=== PATIENT | female | born 1980 | race Caucasian/White ===

== ENCOUNTER 2019-05-11 09:14 | Inpatient (IN) | payer SELFPAY ==
[2019-05-11] MEDS ORDERED: Sodium Chloride 0.9% 10 ML Syringe FLUSH PRN (09:43)
[2019-05-11] MEDS ORDERED: Lactated Ringers 1,000 ML IV SCH (09:45)
[2019-05-11] MEDS ORDERED: Oxytocin/Lactated Ringers 10 UNIT/1,000 ML BAG IV SCH ×2 (09:45)
--- NOTE | 2019-05-11 12:02 | PCM.LDHP ---
L&D History of Present Illness - General Date of Service: 05/11/19 Admit Problem/Dx: Patient Status Order with Admit Dx/Problem 05/11/19 10:21 Patient Status [ADT] Routine Admission Diagnosis/Problem Admission Diagnosis/Problem 05/11/19 14:11 Wendy is a 39-year-old 5 para 4004 white female who is at 39-5/7 weeks gestational age with an RAYO of 05/13/2019 was admitted in labor with spontaneous rupture membranes and advanced cervical dilation of approximately 7 cm. Source of Information: Patient History Limitations: Reports: No Limitations - History of Present Illness Introduction:: Wendy is a 39-year-old 5 para 4004 white female who is at 39-5/7 weeks gestational age with an RAYO of 05/13/2019 was admitted in labor with spontaneous rupture membranes and advanced cervical dilation of approximately 7 cm. She reports SROM occurred at approximately 0930 hrs. on 05/11/2019. She was lynn minimally before that. She is had intensification of contractions since that time. Heart tones are reassuring. Patient requests to do labor is not she is possible. She refuses an IV, is willing to undergo heart tone evaluation. She declines pain control intervention. 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 RAYO 05/13/2019 as is based upon a certain lastduring 08/06/2018 and supported by 2 ultrasounds done during the course of . Patient's obstetric history: Patient had menarche at age 16. Cycles every 28 days. No control times conception. Certain last menstrual period started 08/06/2018. Includes 4 vaginal deliveries in the 6 lbs. 12 oz.-8 lbs. 2 oz. range. Due to these were home deliveries and 3 of those were in the hospital. To have natural course is natural labors. She is considering taking the placenta home to have an encapsulated. This is discussed in detail with patient including the risks, long-term implications that are potentially present and process for doing this. She appears to understand and will sign a release of her spine stability as is protocol of the hospital. course. Patient was seen on a relatively infrequent basis of first visit at 18-5/7 weeks gestational age. She had a total of 5 visits during the course of . Her pregravid weight was 139 and final weight was 159.8 for a 20 pound weight gain. Fundal height growth was appropriate during the course of and her vital signs remained stable. Laboratory testing shows blood to be O+ with a negative MRI screening. Her first hemoglobin is 12.7 g/dL. Platelets are 194,000. She is rubella immune. Patient declined STI testing. Second trimester labs showed hemoglobin of 12.6 g/dL. Her platelets are 165,000. Group B strep screen was negative. Hemoglobin A1c was normal at 5.10 as done on 02/10/2019 as patient declined the 1 hour GTT. Allergies: None Medications: 1. vitamins 2. Ferrous sulfate 325 mg by mouth daily Past medical history: 1. 4. 2. History abnormal Pap smear but normal on recheck Past surgical history: Unremarkable Family history: Mother and father are alive and well. Patient has 6 brothers and 6 sisters. Maternal grandmother is alive and well. Maternal grandfather is secondary to old age. Paternal grandmother is at from unknown cause. Paternal grandfather unknown cause. No clotting, bleeding, congenital defects, or anesthesia problems noted in the family. Social history: Patient is . is Vlad Llamas. She lives in [place], [place]. She is a homemaker. She does not use any significant most alcohol, drugs or tobacco. Review of systems: In general patient has no complaints. Patient reports spontaneous rupture membranes and contractions. Skin: Negative Lungs: No infectious symptoms or shortness of breath Cardiovascular: No chest pain or exercise intolerance Breasts: No lumps, changes in size, pain, dimpling, discharge or axillary or supraclavicular concerns. Changes associated are noted GI: Negative : Changes associated . Musculoskeletal: Negative Neurological: Negative In general the patient is well-developed, well-nourished, pleasant female of stated age in no acute distress. On last evaluation in clinic on 05/03/2019 patient had a blood pressure 114/80 her weight was 159.8 with pregravid weight 139.2. Fundal height was normal at 38 cm. heart rate is 147. Her height is 5 feet 10 inches. Her prepregnancy body mass index is 17.9. Skin is warm dry without lesions. HEENT, neck and back within normal limits. Lungs are clear with good breath sounds in all lung lambert. Cardiovascular exam shows regular and rhythm without murmurs. Breast exam is not done at this time having been done the first visit and found to be normal. Abdomen is gravid. Fundal height is 38 cm baby in vertex presentation.. Genital exam on last evaluation clinic was declined. Upon admission into labor and delivery her cervix was 7 cm dilated. Extremities and neurological exam are grossly within normal limits. 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: - Infectious Disease History Infectious Disease History: Reports: Chicken Pox, Measles, Mumps, Rubella Social & Family History - Family History Family Medical History: Noncontributory - Tobacco Use Smoking Status *Q: Never Smoker Second Hand Smoke Exposure: No - Caffeine Use Caffeine Use: Reports: None - Recreational Drug Use Recreational Drug Use: No H&P Review of Systems - Review of Systems: Review Of Systems: See Below L&D Exam - Exam Exam: See Below - Vital Signs Vital Signs: Last Vital Signs Temp 36.8 C 05/11/19 09:29 Pulse 68 05/11/19 09:29 Resp 15 05/11/19 09:29 BP 137/67 05/11/19 09:29 Pulse Ox Weight: 71.668 kg - Patient Data Lab Results Last 24 hrs: Laboratory Results - last 24 hr 05/11/19 05/11/19 Range/Units 09:50 09:50 WBC 6.79 (3.98-10.04) K/mm3 RBC 3.87 L (3.98-5.22) M/mm3 Hgb 11.0 L D (11.2-15.7) gm/dl Hct 34.0 L (34.1-44.9) % MCV 87.9 (79.4-94.8) fl MCH 28.4 (25.6-32.2) pg MCHC 32.4 (32.2-35.5) g/dl RDW Std Deviation 40.2 (36.4-46.3) fL Plt Count 139 L (182-369) K/mm3 MPV 11.4 (9.4-12.3) fl Neut % (Auto) 68.1 (34.0-71.1) % Lymph % (Auto) 21.9 (19.3-51.7) % [place] % (Auto) 8.4 (4.7-12.5) % Eos % (Auto) 1.0 (0.7-5.8) Baso % (Auto) 0.3 (0.1-1.2) % Neut # (Auto) 4.62 (1.56-6.13) K/mm3 Lymph # (Auto) 1.49 (1.18-3.74) K/mm3 [place] # (Auto) 0.57 H (0.24-0.36) K/mm3 Eos # (Auto) 0.07 (0.04-0.36) K/mm3 Baso # (Auto) 0.02 (0.01-0.08) K/mm3 Gel Antibody Screen Negative Result Diagrams: 05/11/19 09:50 Problem List Initiated/Reviewed/Updated: Yes Orders Last 24hrs: Active Orders 24 hr Category Date Time Status Patient Status Manage Transfer [TRANSFER] Routine ADT 05/11/19 11:59 Ordered Patient Status [ADT] Routine ADT 05/11/19 10:21 Active Activity as Tolerated [RC] PFP Care 05/11/19 09:43 Active Communication Order [RC] ASDIRECTED Care 05/11/19 09:43 Active Heart Tones [RC] ASDIRECTED Care 05/11/19 09:44 Active Non Stress Test [RC] PER UNIT ROUTINE Care 05/11/19 09:29 Active Notify Provider [RC] PFP Care 05/11/19 09:43 Active Notify Provider [RC] PRN Care 05/11/19 09:43 Active Peripheral IV Care [RC] . DIRECTED Care 05/11/19 09:44 Active Vital Signs [RC] PER UNIT ROUTINE Care 05/11/19 09:29 Active Vital Signs [RC] PER UNIT ROUTINE Care 05/11/19 09:43 Active Regular Diet [DIET] Diet 05/11/19 Breakfast Active RAPID PLASMA REAGIN,RPR [CHEM] Routine Lab 05/11/19 09:50 Received TYPE AND SCREEN [BBK] Stat Lab 05/11/19 09:50 Results Lactated Ringers [Ringers, Lactated] 1,000 ml Med 05/11/19 09:45 Active IV ASDIRECTED Oxytocin/Lactated Ringers [Pitocin in LR 10 Units/1,000 Med 05/11/19 09:45 Active ML] 10 unit in 1,000 ml IV .CONTINUOUS Oxytocin/Lactated Ringers [Pitocin in LR 10 Units/1,000 Med 05/11/19 09:45 Active ML] 10 unit in 1,000 ml IV TITRATE Sodium Chloride 0.9% [Saline Flush] Med 05/11/19 09:43 Active 10 ml FLUSH ASDIRECTED PRN Electronic Heart Tones Ext w TOCO [WOMSER] Oth 05/11/19 09:43 Ordered Routine Electronic Heart Tones Internal [WOMSER] Per Unit Oth 05/11/19 09:43 Ordered Routine Peripheral IV Insertion Adult [OM.PC] Routine Oth 05/11/19 09:43 Ordered Resuscitation Status Routine Resus Stat 05/11/19 09:29 Ordered Medication Orders Lactated Ringer's (Ringers, Lactated) 1,000 mls @ 100 mls/hr IV ASDIRECTED MARINO Oxytocin/Lactated Ringer's (Pitocin In Lr 10 Units/1,000 Ml) 10 unit in 1,000 mls @ 12 mls/hr IV TITRATE MARINO; Protocol Oxytocin/Lactated Ringer's (Pitocin In Lr 10 Units/1,000 Ml) 10 unit in 1,000 mls @ 100 mls/hr IV .CONTINUOUS MARINO Sodium Chloride (Saline Flush) 10 ml FLUSH ASDIRECTED PRN PRN Reason: Keep Vein Open Assessment/Plan Comment:: 1. 39-5/7 week intrauterine admitted to labor and delivery with spontaneous rupture membranes with resultant clear amniotic fluid, active labor and advanced cervical dilation. 2. Group B strep screen negative 3. Patient desires natural labor. She declines laboratory testing, IV. She is willing to do intermittent heart rate monitoring during labor. 4. Patient is rubella immune. She declined STI testing 5. Patient declined T dap 6. Patient is planning to breast-feed. Plan: 1. Anticipate spontaneous vaginal delivery 2. Natural labor 3. Support breast feeding decision.
--- NOTE | 2019-05-11 12:02 | PCM.SN ---
- Free Text/Narrative Note: Delivery note: Wendy is a 39-year-old 5 para 4004 white female who is at 39-5/7 weeks gestational age with an RAYO of 05/13/2019 was admitted in labor with spontaneous rupture membranes and advanced cervical dilation of approximately 7 cm. patient quickly progressed to complete cervical dilation and at 1047 hrs. on 05/11/2019 she delivered a viable, smith, male infant with Apgars of 9 and 9, weight of 3730 g menses 8 pounds 3.6 ounces), length of 19.5 inches in an occiput anterior position over an intact perineum. The baby was placed on mom's abdomen, nose and mouth were bulb suctioned and the baby was dried. Dosage was not given as patient had declined an IV. The patient nursed the baby shortly after . The baby had a shoulder cord and a half hitch of the cord around the right leg. There was a true knot in the cord. There were 3 vessels in the umbilical cord. Cord blood was obtained. Cord was allowed to pulsate and actually pulsate until the time that it delivered approximately at 1050 hrs. There were approximately 100 mL blood loss. The patient desired to keep the placenta and taken at home. She signed a release of responsibility per protocol at the hospital. Discussion was held with the patient as to the risks and potential implications of taking the placenta and consuming the placenta as she has intentions of doing. The placenta delivered in a Kaye presentation, appeared intact and complete. The patient nursed shortly after delivery and there was minimal bleeding noted. Condition: Good
[2019-05-11] MEDS ORDERED: Acetaminophen 325 MG Tab PO PRN (12:04)
[2019-05-11] MEDS ORDERED: Ibuprofen 600 MG Tab PO PRN (12:04)
[2019-05-11] MEDS ORDERED: Benzocaine/Menthol 20%-0.5% Spray 56 GM Canister TOP PRN (12:04)
[2019-05-11] MEDS ORDERED: Docusate Sodium 100 MG Cap PO PRN (12:04)
[2019-05-11] MEDS ORDERED: Witch Hazel Medicated Pads 40/Jar TOP PRN (12:04)
--- NOTE | 2019-05-12 07:13 | PCM.SN ---
- Free Text/Narrative Note: Wendy is a 39-year-old 5 para 4004 white female who is at 39-5/7 weeks gestational age with an RAYO of 05/13/2019 was admitted in labor with spontaneous rupture membranes and advanced cervical dilation of approximately 7 cm. patient quickly progressed to complete cervical dilation and at 1047 hrs. on 05/11/2019 she delivered a viable, smith, male with Apgars of 9 and 9, weight of 3730 g menses 8 pounds 3.6 ounces), length of 19.5 inches in an occiput anterior position over an intact perineum. The baby was placed on mom's abdomen, nose and mouth were bulb suctioned and the baby was dried. Dosage was not given as patient had declined an IV. The patient nursed the baby shortly after . The baby had a shoulder cord and a half hitch of the cord around the right leg. There was a true knot in the cord. There were 3 vessels in the umbilical cord. Cord blood was obtained. Cord was allowed to pulsate and actually pulsate until the time that it delivered approximately at 1050 hrs. There were approximately 100 mL blood loss. The patient desired to keep the placenta and taken at home. She signed a release of responsibility per protocol at the hospital. Discussion was held with the patient as to the risks and potential implications of taking the placenta and consuming the placenta as she has intentions of doing. The placenta delivered in a Kaye presentation, appeared intact and complete. The patient nursed shortly after delivery and there was minimal bleeding noted. Condition: Good
--- NOTE | 2019-05-12 07:27 | PCM.DCSUM1 ---
Discharge Summary - Hospital Course Free Text/Narrative:: Wendy is a 39-year-old 5 para 4004 white female who is at 39-5/7 weeks gestational age with an RAYO of 05/13/2019 was admitted in labor with spontaneous rupture membranes and advanced cervical dilation of approximately 7 cm. patient quickly progressed to complete cervical dilation and at 1047 hrs. on 05/11/2019 she delivered a viable, smith, male infant with Apgars of 9 and 9, weight of 3730 g menses 8 pounds 3.6 ounces), length of 19.5 inches in an occiput anterior position over an intact perineum. The baby was placed on mom's abdomen, nose and mouth were bulb suctioned and the baby was dried. Dosage was not given as patient had declined an IV. The patient nursed the baby shortly after . The baby had a shoulder cord and a half hitch of the cord around the right leg. There was a true knot in the cord. There were 3 vessels in the umbilical cord. Cord blood was obtained. Cord was allowed to pulsate and actually pulsate until the time that it delivered approximately at 1050 hrs. There were approximately 100 mL blood loss. The patient desired to keep the placenta and taken at home. She signed a release of responsibility per protocol at the hospital. Discussion was held with the patient as to the risks and potential implications of taking the placenta and consuming the placenta as she has intentions of doing. The placenta delivered in a Kaye presentation, appeared intact and complete. The patient nursed shortly after delivery and there was minimal bleeding noted. patient is done well. She has minimal lochia, is nursing well and is ambulating without problems. She is desiring discharge home. Condition: Good Diagnosis: Stroke: No - Discharge Data Discharge Date: 05/12/19 Discharge Disposition: Home, Self-Care 01 Condition: Good - Referral to Home Health Primary Care Physician: Tristin Jenkins MD - Patient Instructions Diet: Regular Diet as Tolerated (Nursing diet was increased calcium and calories as indicated) Activity: As Tolerated (No intercourse or tampons until bleeding resolves) Driving: May Drive Today Showering/Bathing: May Shower (May take a bath) Notify Provider of: Fever, Increased Pain, Swelling and Redness, Nausea and/or Vomiting - Discharge Plan Home Medications: Home Meds #103/Iron Fumarate/Fa [ ] 1 each PO DAILY 05/11/19 [ History] Acetaminophen [Tylenol] 650 mg PO Q4H PRN tablet 05/12/19 [Rx] Ibuprofen [Motrin] 600 mg PO Q4H PRN tablet 05/12/19 [Rx] Referrals: Tristin Jenkins MD [Primary Care Provider] - (During the clinicDr. Jenkins or Rocio king, nurse practitioner2 weeks.) - Discharge Summary/Plan Comment DC Time >30 min.: No Discharge Summary/Plan Comment: Discharge instructions: 1. Discharge home 2. Diet, activity and follow-up discussed with patient. Recommend nursing diet with increased calories and calcium. 3. Precautions given concern increased pain, bleeding, temperature, signs/ symptoms of DVT/PE. 4. Medications per home medication was printed, discussed with and given to the patient. 5. Return to clinic-Dr. Jenkins or Rocio king, nurse practitioner-[facility] in 2 weeks. Diagnosis: Term -delivered Condition: Good - Patient Data Vitals - Most Recent: Last Vital Signs Temp 36.7 C 05/12/19 04:36 Pulse 65 05/12/19 04:36 Resp 16 05/12/19 04:36 BP 108/64 05/12/19 04:36 Pulse Ox 95 05/12/19 04:36 Weight - Most Recent: 71.668 kg Lab Results - Last 24 hrs: Laboratory Results - last 24 hr 05/11/19 05/11/19 05/11/19 Range/Units 09:50 09:50 09:50 WBC 6.79 (3.98-10.04) K/mm3 RBC 3.87 L (3.98-5.22) M/mm3 Hgb 11.0 L D (11.2-15.7) gm/dl Hct 34.0 L (34.1-44.9) % MCV 87.9 (79.4-94.8) fl MCH 28.4 (25.6-32.2) pg MCHC 32.4 (32.2-35.5) g/dl RDW Std Deviation 40.2 (36.4-46.3) fL Plt Count 139 L (182-369) K/mm3 MPV 11.4 (9.4-12.3) fl Neut % (Auto) 68.1 (34.0-71.1) % Lymph % (Auto) 21.9 (19.3-51.7) % [place] % (Auto) 8.4 (4.7-12.5) % Eos % (Auto) 1.0 (0.7-5.8) Baso % (Auto) 0.3 (0.1-1.2) % Neut # (Auto) 4.62 (1.56-6.13) K/mm3 Lymph # (Auto) 1.49 (1.18-3.74) K/mm3 [place] # (Auto) 0.57 H (0.24-0.36) K/mm3 Eos # (Auto) 0.07 (0.04-0.36) K/mm3 Baso # (Auto) 0.02 (0.01-0.08) K/mm3 RPR Non-reactive (NONREACTIVE) Blood Type O POSITIVE Gel Antibody Screen Negative Med Orders - Current: Current Medications Acetaminophen (Tylenol) 650 mg PO Q4H PRN PRN Reason: mild pain or fever Benzocaine/Menthol (Dermoplast Pain Relief [place]) 0 gm TOP ASDIRECTED PRN PRN Reason: Perineal Comfort Measure Docusate Sodium (Colace) 100 mg PO BID PRN PRN Reason: Constipation Ibuprofen (Motrin) 600 mg PO Q4H PRN PRN Reason: Mild pain or fever Prenat Multivit/[place]/Iron/Folic Ac ( Plus Iron) 1 each PO DAILY [facility] Lois [place] ([place]) 1 pad TOP ASDIRECTED PRN PRN Reason: Pain Discontinued Medications Lactated Ringer's (Ringers, Lactated) 1,000 mls @ 100 mls/hr IV ASDIRECTED MARINO Oxytocin/Lactated Ringer's (Pitocin In Lr 10 Units/1,000 Ml) 10 unit in 1,000 mls @ 12 mls/hr IV TITRATE MARINO; Protocol Oxytocin/Lactated Ringer's (Pitocin In Lr 10 Units/1,000 Ml) 10 unit in 1,000 mls @ 100 mls/hr IV .CONTINUOUS MARINO Sodium Chloride (Saline Flush) 10 ml FLUSH ASDIRECTED PRN PRN Reason: Keep Vein Open
[2019-05-12] MEDS ORDERED: Prenatal Multivitamin with Calcium/Folic Acid/Iron Tab PO SCH (09:00)
[2019-05-12 13:20] VITALS: BP 121/77; PULSE 65
== END 2019-05-12 12:25 | disposition home or self-care (01) | DRG 807 ==
LOC: JD.OB 09:14 → OBSVTOIN 10:45 → JD.OB 10:46
PROVIDERS: ADMIT Obstetrics & Gynecology; ATTEND Obstetrics & Gynecology
PROC: 10E0XZZ Delivery of Products of Conception, External Approach (ICD-10-PCS; principal; 2019-05-11)
DX: O80 Encounter for full-term uncomplicated delivery (principal); Z37.0 Single live birth; Z3A.39 39 weeks gestation of pregnancy
CPT/HCPCS: 36415; 59025; 59409; 85025; 86592; 86850; 86900; 86901

== ENCOUNTER 2021-11-02 09:53 | Emergency (ER) | payer SELFPAY ==
[2021-11-02] MEDS ORDERED: Albuterol/Ipratropium 3.0-0.5 MG/3 ML Neb Soln NEB ONE (10:28)
[2021-11-02] MEDS ORDERED: methylPREDNISolone Sodium Succinate 40 MG/1 ML SDV IVPUSH ONE (10:29)
[2021-11-02] MEDS ORDERED: Sodium Chloride 0.9% 10 ML Syringe FLUSH PRN (10:30)
[2021-11-02] MEDS ORDERED: Iopamidol 755 Mg/ML 100 ML Bottle IVPUSH ONE (10:30)
[2021-11-02] MEDS ORDERED: Sodium Chloride 0.9% 100 ML IV SCH (10:30)
[2021-11-02] MEDS ORDERED: Magnesium Sulfate/Water 2 GM in Premix Bag 1 BAG IV SCH (10:45)
[2021-11-02] MEDS ORDERED: Magnesium Sulfate/Water 2 GM in Premix Bag 1 BAG IV ONE (11:00)
[2021-11-02 11:26] LABS: ESTIMATED GFR 116 mL/min (>60)
[2021-11-02 13:12] VITALS: BP 102/68; PULSE 87
== END 2021-11-02 13:08 | disposition home or self-care (01) ==
LOC: JD.ED 09:53
DX: J45.909 Unspecified asthma, uncomplicated (principal)
CPT/HCPCS: 36415; 71275; 80053; 83605; 85007; 85027; 85379; 86140; 94640; 96365; 96375; 99285; J2920; J3475; J3490; Q9967; 99283; J7620-GY